=== PATIENT | male | born 1995 | race Caucasian/White ===

== ENCOUNTER 2016-11-30 13:27 | Emergency (ER) | payer MEDICAID ==
[2016-11-30] MEDS ORDERED: SODIUM CHLORIDE 0.9% 1,000 ML IV ONE (14:04)
--- NOTE | 2016-11-30 14:07 | ED Physician Documentation ---
History of Present Illness - Stated complaint Stated Complaint: FATIGUE CHILLS - Chief complaint Chief Complaint: General - History obtained from History obtained from: Patient - History of Present Illness Timing: Other (Previously healthy 21-year-old with 3 days of illness marked by profound fatigue, chills and sweats without measured fevers, sore throat, and sores especially on the tongue and buccal mucosa since last night. He has sharp left-sided upper chest pain with this that is constant for the last few days. There is only a mild associated cough. No sick contacts or recent travel.) Review of Systems Constitutional: reports: Chills, Myalgias, Fatigue, Sweats Nose: denies: Rhinorrhea / runny nose, Congestion Throat: reports: Sore throat Cardiac: reports: Chest pain / pressure Respiratory: reports: Cough. denies: Dyspnea GI: denies: Abdominal Pain PD PAST MEDICAL HISTORY - Past Surgical History Past Surgical History: No - Present Medications Home Medications: Ambulatory Orders Medication Instructions Recorded Confirmed Doxycycline Hyclate 100 mg PO BID #14 tablet 11/30/16 - Allergies Allergies/Adverse Reactions: Allergies Allergy/AdvReac Type Severity Reaction Status Date / Time No Known Drug Allergies Allergy Verified 12/24/15 13:04 - Social History Does the pt smoke?: No Smoking Status: Never smoker Does the pt drink ETOH?: No Does the pt have substance abuse?: No - Immunizations Immunizations are current?: Yes PD ED PE NORMAL - Vitals Vital signs reviewed: Yes (Tachycardic) - General General: Alert and oriented X 3, No acute distress - HEENT HEENT: Other (Quite a few ulcers on the buccal mucosa, the tip of the tongue, and the hard palate. Tonsils look grossly normal. There is moderate anterior cervical adenopathy.) - Cardiac Cardiac: No murmur, Other (Tachycardic, regular, he is mildly tender to the left anterior chest wall.) - Respiratory Respiratory: No respiratory distress, Clear bilaterally - Abdomen Abdomen: Non tender - Derm Derm: No rash - Neuro Neuro: Alert and oriented X 3, Normal speech - Psych Psych: Normal mood, Normal affect Results - Vitals Vitals: Vital Signs - 24 hr 11/30/16 13:33 Temperature 37.5 C Heart Rate 124 H Respiratory 18 Rate Blood Pressure 154/91 H O2 Saturation 98 Oxygen O2 Source Room air - EKG (time done) 1414 Rate: Rate (enter#) (117) Rhythm: Sinus tachycardia [place]: Normal Intervals: Normal [place] QRS: Normal Ischemia: Non specific changes (Flat T's throughout) Compare to prior EKG: Old EKG unavailable Computer interpretation: Agree with computer - Labs Labs: Laboratory Tests 11/30/16 11/30/16 11/30/16 14:30 14:30 14:30 WBC 8.8 RBC 4.93 Hgb 15.1 Hct 42.9 MCV 87.0 MCH 30.5 MCHC 35.1 RDW 12.6 Plt Count 192 MPV 7.5 Neut # 6.9 H Lymph # 1.0 L [place] # 0.8 Eos # 0.0 Baso # 0.0 Absolute Nucleated RBC 0.00 Nucleated RBC % 0.0 Sodium 135 Potassium 3.8 Chloride 101 Carbon Dioxide 22 Anion Gap 12.0 BUN 18 Creatinine 1.0 Estimated GFR (MDRD) 93 Glucose 84 Calcium 8.5 Total Bilirubin 1.0 AST 18 ALT 22 Alkaline Phosphatase 46 Total Protein 8.3 H Albumin 4.2 Globulin 4.1 Albumin/Globulin Ratio 1.0 Lipase 15 L Infectious [place] Assay NEGATIVE Group A Strep Rapid 11/30/16 14:30 WBC RBC Hgb Hct MCV MCH MCHC RDW Plt Count MPV Neut # Lymph # [place] # Eos # Baso # Absolute Nucleated RBC Nucleated RBC % Sodium Potassium Chloride Carbon Dioxide Anion Gap BUN Creatinine Estimated GFR (MDRD) Glucose Calcium Total Bilirubin AST ALT Alkaline Phosphatase Total Protein Albumin Globulin Albumin/Globulin Ratio Lipase Infectious [place] Assay Group A Strep Rapid Negative - Rads (name of study) 2v chest Radiology: EMP read contemporaneously (Basilar opacities and a 7 mm right mid lung nodule needing follow-up.) PD MEDICAL DECISION MAKING - ED course ED course: This young man presents with with seems to be a predominantly viral syndrome associated with mouth sores, systemic symptoms of aches and chills without measured fevers, and dehydration. He is administered IV fluids. Labs are checked and as shown, basically unremarkable, he does have a positive chest x- ray which was discussed with the patient in follow-up advised. Departure - Departure Disposition: 01 Home, Self Care Clinical Impression: Viral syndrome, Pulmonary nodule Pneumonia Qualifiers: Pneumonia type: due to unspecified organism Laterality: bilateral Lung location : lower lobe of lung Qualified Code(s): J18.9 - Pneumonia, unspecified organism Condition: Good Record reviewed to determine appropriate education?: Yes Instructions: Pneumonia Dc, ED Viral Syndrome Follow-Up: [facility] [Provider Group] Prescriptions: Doxycycline Hyclate 100 mg PO BID #14 tablet Comments: Tylenol or ibuprofen as needed for pain. Drink plenty of fluids. Follow-up with your doctor in 2-3 days if not better. Return if worse. Your blood pressure was elevated today on check into the emergency department. This does not mean that you have hypertension, it is a common phenomenon to come to the emergency department and have elevated blood pressure. I recommend that you see your primary care physician within the week to have it rechecked when you are feeling better. As discussed you have a small nodule on the right side of your lung on the chest x-ray that needs to be followed up with your primary care physician, recommend either a nonurgent CT or follow-up chest x-ray per their discretion. Some local physicians are listed on this form. Forms: Activity restrictions
--- NOTE | 2016-11-30 14:52 | XRAY Preliminary Report ---
Exam: XR CHEST 2 VIEW PA/LAT IMPRESSION: 1. Mild left greater than right basilar opacities could reflect atelectasis or possibly mild pneumoni a. No other airspace consolidation. 2. New 7 mm nodular opacity projects over the right midlung. While this may represent a granuloma, it is indeterminate by plain radiograph. Nonemergent chest CT could be obtained for further evaluation. [facility] SITE ID: [id number]
--- NOTE | 2016-11-30 14:55 | XRAY Report ---
EXAM: CHEST RADIOGRAPHY EXAM DATE: 11/30/2016 02:38 PM. CLINICAL HISTORY: Left chest pain. COMPARISON: 11/17/2010. TECHNIQUE: 2 views. FINDINGS: Lungs/Pleura: 7 mm nodular opacity projecting over the right midlung is new compared to 2010. Mild le ft greater than right base opacity could reflect atelectasis or possibly mild pneumonia. No pleural e ffusion or pneumothorax. Mediastinum: Heart and mediastinal contours are unremarkable. Other: None. IMPRESSION: 1. Mild left greater than right basilar opacities could reflect atelectasis or possibly mild pneumoni a. No other airspace consolidation. 2. New 7 mm nodular opacity projects over the right midlung. While this may represent a granuloma, it is indeterminate by plain radiograph. Nonemergent chest CT could be obtained for further evaluation. [facility] Referring Provider Line: [phone] SITE ID: [id number]
[2016-11-30 14:58] LABS: BASOPHILS % (AUTO) 0.2 %; HCT - HEMATOCRIT 42.9 % (42.0-52.0); HGB - HEMOGLOBIN 15.1 g/dL (14.0-18.0); LYMPHOCYTES % (AUTO) 11.1 %; MEAN CORPUSCULAR HEMOGLOBIN 30.5 pg (27.0-31.0); MEAN CORPUSCULAR HGB CONC 35.1 g/dL (32.0-36.0); MEAN PLATELET VOLUME 7.5 fL (7.4-11.4); MONOCYTES # (AUTO) 0.8 10^3/uL (0.0-1.0); MONOCYTES % (AUTO) 9.6 %; NEUTROPHILS # (AUTO) 6.9 10^3/uL (1.5-6.6); NEUTROPHILS % (AUTO) 79.1 %; RED BLOOD COUNT 4.93 10^6/uL (4.70-6.10); RED CELL DISTRIBUTION WIDTH 12.6 % (12.0-15.0); UNCORRECTED WHITE BLOOD COUNT 8.8 x10^3/uL; WHITE BLOOD COUNT 8.8 x10^3/uL (4.8-10.8)
[2016-11-30 15:04] LABS: MONO NEG QC NEGATIVE (Negative); MONO POS QC POSITIVE (Positive)
[2016-11-30 15:06] LABS: CALCIUM 8.5 mg/dL (8.5-10.3); POTASSIUM 3.8 mmol/L (3.5-5.0); TOTAL PROTEIN 8.3 g/dL (6.7-8.2)
[2016-11-30 15:07] LABS: RAPID STREP SCREEN REAGENT QC YELLOW (YELLOW)
[2016-11-30] MEDS ORDERED: DOXYCYCLINE 100 MG TABLET PO STA (15:32)
[2016-11-30] MEDS ORDERED: DOXYCYCLINE 100 MG TABLET PO ONE (15:47)
[2016-11-30 15:52] VITALS: BP 142/86
== END 2016-11-30 15:52 | disposition home or self-care (01) ==
LOC: ED 13:27
DX: B34.9 Viral infection, unspecified (principal); R91.1 Solitary pulmonary nodule; J18.9 Pneumonia, unspecified organism; R03.0 Elevated blood-pressure reading, without diagnosis of hypertension; R00.0 Tachycardia, unspecified; E86.0 Dehydration; K12.1 Other forms of stomatitis; K14.0 Glossitis; R07.9 Chest pain, unspecified
CPT/HCPCS: 36415; 71020; 80053; 83690; 85025; 86308; 87070; 87430; 93005; 96360; 99283; 99284; A9270

== ENCOUNTER 2018-06-23 11:16 | Emergency (ER) | payer MEDICAID, OTHER ==
[2018-06-23] MEDS ORDERED: ONDANSETRON 4 MG/2 ML VIAL IVP STA (11:28)
[2018-06-23] MEDS ORDERED: SODIUM CHLORIDE 0.9% 1,000 ML IV ONE (11:28)
[2018-06-23 11:54] LABS: BASOPHILS % (AUTO) 0.4 %; EOSINOPHILS # (AUTO) 0.1 10^3/uL (0.0-0.7); EOSINOPHILS % (AUTO) 0.6 %; HGB - HEMOGLOBIN 17.5 g/dL (14.0-18.0); LYMPHOCYTES # (AUTO) 1.7 10^3/uL (1.5-3.5); LYMPHOCYTES % (AUTO) 17.6 %; MEAN CORPUSCULAR HEMOGLOBIN 30.2 pg (27.0-31.0); MEAN CORPUSCULAR HGB CONC 34.1 g/dL (32.0-36.0); MEAN CORPUSCULAR VOLUME 88.5 fL (80.0-94.0); MEAN PLATELET VOLUME 7.8 fL (7.4-11.4); MONOCYTES # (AUTO) 0.5 10^3/uL (0.0-1.0); MONOCYTES % (AUTO) 5.5 %; NEUTROPHILS # (AUTO) 7.3 10^3/uL (1.5-6.6); NEUTROPHILS % (AUTO) 75.9 %; PLT - PLATELET COUNT 317 10^3/uL (130-450); RED BLOOD COUNT 5.82 10^6/uL (4.70-6.10); RED CELL DISTRIBUTION WIDTH 12.9 % (12.0-15.0); WHITE BLOOD COUNT 9.6 x10^3/uL (4.8-10.8)
--- NOTE | 2018-06-23 12:18 | ED Physician Documentation ---
PD HPI NVD - Stated complaint Stated Complaint: VOMITING - Chief complaint Chief Complaint: Abd Pain - History obtained from History obtained from: Patient, Family - History of Present Illness Timing - onset: How many days ago (2) Timing - duration: Days (2) Timing - details: Gradual onset Pain level max: 4 Pain level now: 3 Associated symptoms: Abdominal pain (Crampy, diffuse). No: Fever, Chest pain, Hematemesis, Melena Contributing factors: Sick contact Improved by: Vomiting Worsened by: Eating Recently seen: Not recently seen - Additonal information Additional information: Patient states that he had diarrhea 2 days ago, now has had vomiting for the past 2 days. Feeling weak and tired. Review of Systems Constitutional: denies: Fever, Chills Respiratory: denies: Cough GI: denies: Hematemesis, Bloody / black stool : denies: Dysuria, Frequency Skin: denies: Rash PD PAST MEDICAL HISTORY - Past Medical History Past Medical History: Yes Psych: Depression - Past Surgical History Past Surgical History: No - Present Medications Home Medications: Ambulatory Orders Medication Instructions Recorded Confirmed FLUoxetine [PROzac] 10 mg PO DAILY 06/23/18 06/23/18 Ondansetron Odt [Zofran] 4 mg TL Q6H PRN #10 tablet 06/23/18 - Allergies Allergies/Adverse Reactions: Allergies Allergy/AdvReac Type Severity Reaction Status Date / Time No Known Drug Allergies Allergy Verified 06/23/18 11:21 - Social History Does the pt smoke?: No Smoking Status: Never smoker Does the pt drink ETOH?: No Does the pt have substance abuse?: No - Immunizations Immunizations are current?: Yes PD ED PE NORMAL - Vitals Vital signs reviewed: Yes - General General: Alert and oriented X 3, No acute distress - HEENT HEENT: PERRL, Other (Dry lips and tongue) - Neck Neck: Supple, no meningeal sign - Cardiac Cardiac: RRR - Respiratory Respiratory: No respiratory distress, Clear bilaterally - Abdomen Abdomen: Normal bowel sounds, Soft, Non tender, Non distended - Back Back: No CVA TTP - Derm Derm: Warm and dry - Extremities Extremities: No edema - Neuro Neuro: Alert and oriented X 3 - Psych Psych: Normal mood, Normal affect Results - Vitals Vitals: Vital Signs - 24 hr 06/23/18 06/23/18 11:19 13:02 Temperature 36.7 C 37 C Heart Rate 105 H 78 Respiratory 18 16 Rate Blood Pressure 145/87 H 144/86 H O2 Saturation 99 98 Oxygen O2 Source Room air - Labs Labs: Laboratory Tests 06/23/18 06/23/18 11:40 11:40 WBC 9.6 RBC 5.82 Hgb 17.5 Hct 51.5 MCV 88.5 MCH 30.2 MCHC 34.1 RDW 12.9 Plt Count 317 MPV 7.8 Neut # (Auto) 7.3 H Lymph # (Auto) 1.7 [place] # (Auto) 0.5 Eos # (Auto) 0.1 Baso # (Auto) 0.0 Absolute Nucleated RBC 0.01 Nucleated RBC % 0.1 Sodium 140 Potassium 3.6 Chloride 102 Carbon Dioxide 23 Anion Gap 15.0 H BUN 18 Creatinine 1.2 Estimated GFR (MDRD) 74 L Glucose 103 H Calcium 9.2 Total Bilirubin 0.9 AST 18 ALT 28 Alkaline Phosphatase 56 Total Protein 7.5 Albumin 4.3 Globulin 3.2 Albumin/Globulin Ratio 1.3 Lipase 19 L PD MEDICAL DECISION MAKING - ED course Complexity details: reviewed results, re-evaluated patient, considered differential, d/w patient, d/w family ED course: 22-year-old male with what appears to be a viral gastroenteritis. He is well- appearing, nontoxic. Afebrile. Feels better after IV fluids and Zofran. Tolerating p.o. without difficulty. We will continue supportive care and follow-up with his doctor. Patient and family counseled regarding signs and symptoms for which I believe and urgent re-evaluation would be necessary. Patient with good understanding of and agreement to plan and is comfortable going home at this time This document was made in part using voice recognition software. While efforts a re made to proofread this document, sound alike and grammatical errors may occur. Departure - Departure Disposition: 01 Home, Self Care Clinical Impression: Vomiting Qualifiers: Vomiting type: unspecified Vomiting Intractability: non-intractable Nausea presence: with nausea Qualified Code(s): R11.2 - Nausea with vomiting, unspecified Condition: Good Instructions: ED Nausea Vomiting Follow-Up: Provider,Other [Primary Care Provider] - Within 1 week Prescriptions: Ondansetron Odt [Zofran] 4 mg TL Q6H PRN #10 tablet PRN Reason: Nausea / Vomiting Comments: Drink plenty of fluids. Return if you worsen. Follow-up with your doctor for further care. Discharge Date/Time: 06/23/18 13:36
[2018-06-23 12:21] LABS: ALBUMIN 4.3 g/dL (3.2-5.5); ALBUMIN/GLOBULIN RATIO 1.3 (1.0-2.2); BILIRUBIN,TOTAL 0.9 mg/dL (0.2-1.0); CALCIUM 9.2 mg/dL (8.5-10.3); CREATININE 1.2 mg/dL (0.6-1.2); TOTAL PROTEIN 7.5 g/dL (6.7-8.2)
[2018-06-23 13:04] VITALS: BP 144/86
== END 2018-06-23 13:36 | disposition home or self-care (01) ==
LOC: ED 11:16
DX: R11.2 Nausea with vomiting, unspecified (principal); R10.84 Generalized abdominal pain; R53.1 Weakness
CPT/HCPCS: 36415; 80053; 83690; 85025; 96361; 96374; 99283

== ENCOUNTER 2018-07-10 10:16 | Emergency (ER) | payer OTHER ==
[2018-07-10 10:25] VITALS: BP 143/86
[2018-07-10 10:49] LABS: GLUCOSE, URINE (UA) NEGATIVE (NEGATIVE); KETONES,URINE (UA) NEGATIVE (NEGATIVE); LEUKOCYTE ESTERASE, URINE NEGATIVE (NEGATIVE); NITRITE,URINE NEGATIVE (NEGATIVE); OCCULT BLOOD,URINE NEGATIVE (NEGATIVE); PROTEIN,URINE TRACE mg/dL (NEGATIVE); UROBILINOGEN,URINE 0.2 (NORMAL) E.U./dL (NORMAL)
[2018-07-10 10:54] LABS: BASOPHILS % (AUTO) 0.3 %; EOSINOPHILS # (AUTO) 0.1 10^3/uL (0.0-0.7); EOSINOPHILS % (AUTO) 0.7 %; LYMPHOCYTES # (AUTO) 1.4 10^3/uL (1.5-3.5); LYMPHOCYTES % (AUTO) 17.7 %; MEAN CORPUSCULAR HEMOGLOBIN 30.4 pg (27.0-31.0); MEAN CORPUSCULAR HGB CONC 34.6 g/dL (32.0-36.0); MEAN CORPUSCULAR VOLUME 87.8 fL (80.0-94.0); MEAN PLATELET VOLUME 7.3 fL (7.4-11.4); MONOCYTES # (AUTO) 0.4 10^3/uL (0.0-1.0); MONOCYTES % (AUTO) 4.8 %; NEUTROPHILS # (AUTO) 5.9 10^3/uL (1.5-6.6); NEUTROPHILS % (AUTO) 76.5 %; PLT - PLATELET COUNT 281 10^3/uL (130-450); RED BLOOD COUNT 5.28 10^6/uL (4.70-6.10); RED CELL DISTRIBUTION WIDTH 12.9 % (12.0-15.0); WHITE BLOOD COUNT 7.7 x10^3/uL (4.8-10.8)
[2018-07-10 10:55] LABS: BILIRUBIN,URINE NEGATIVE (NEGATIVE); CLARITY,URINE CLEAR (CLEAR); ICTOTEST,URINE NEGATIVE
[2018-07-10] MEDS ORDERED: HALOPERIDOL 5 MG/ML VIAL IM STA (11:01)
[2018-07-10] MEDS ORDERED: FAMOTIDINE 20 MG TABLET PO STA (11:02)
[2018-07-10 11:07] LABS: ALBUMIN 4.6 g/dL (3.2-5.5); ALBUMIN/GLOBULIN RATIO 1.3 (1.0-2.2); BILIRUBIN,TOTAL 0.7 mg/dL (0.2-1.0); CALCIUM 9.3 mg/dL (8.5-10.3); CREATININE 1.1 mg/dL (0.6-1.2); TOTAL PROTEIN 8.2 g/dL (6.7-8.2)
[2018-07-10] MEDS ORDERED: GI COCKTAIL 120 ML BOTTLE PO STA (12:20)
--- NOTE | 2018-07-10 12:23 | ED Physician Documentation ---
PD HPI NVD - Stated complaint Stated Complaint: VOMITING - Chief complaint Chief Complaint: Abd Pain - History obtained from History obtained from: Patient - History of Present Illness Timing - onset: How many weeks ago (2-3) Timing - duration: Weeks Associated symptoms: Abdominal pain, Hematemesis, Loss of appetite. No: Fever, Melena, Hematochezia, Dizzy, Near syncope / syncope Contributing factors: No: Sick contact, Bad food, Travel, Recent antibiotics, Alcohol use, Anticoagulated, Diabetes Improved by: Other (nothing) Worsened by: Eating Similar symptoms before: Diagnosis (seen a few weeks ago and diagnosed with gastroenteritis) Recently seen: Emergency Dept (treated for possible gastroenteritis) - Treatment prior to arrival Treatment prior to arrival: zofran at home - Additonal information Additional information: Denies use of marijuana or other drugs. Denies diarrhea Review of Systems Ten Systems: 10 systems reviewed and negative Constitutional: denies: Fever, Chills Throat: denies: Sore throat Cardiac: denies: Chest pain / pressure Respiratory: reports: Wheezing. denies: Dyspnea, Cough GI: reports: Abdominal Pain, Nausea, Vomiting. denies: Abdominal Swelling, Constipation, Diarrhea, Hematemesis, Bloody / black stool Skin: denies: Rash Neurologic: denies: Generalized weakness Psychiatric: denies: Suicidal PD PAST MEDICAL HISTORY - Past Medical History Past Medical History: Yes Psych: Depression - Past Surgical History Past Surgical History: No - Present Medications Home Medications: Ambulatory Orders Medication Instructions Recorded Confirmed FLUoxetine [PROzac] 10 mg PO DAILY 06/23/18 06/23/18 Ondansetron Odt [Zofran] 4 mg TL Q6H PRN #10 tablet 06/23/18 RX: Omeprazole 20 mg PO DAILY #10 capsule. 07/10/18 - Allergies Allergies/Adverse Reactions: Allergies Allergy/AdvReac Type Severity Reaction Status Date / Time No Known Drug Allergies Allergy Verified 07/10/18 10:25 - Social History Does the pt smoke?: No Smoking Status: Never smoker Does the pt drink ETOH?: No Does the pt have substance abuse?: No - Immunizations Immunizations are current?: Yes PD ED PE NORMAL - Vitals Vital signs reviewed: Yes - General General: Alert and oriented X 3 - HEENT HEENT: Atraumatic, Moist mucous membranes - Neck Neck: Supple, no meningeal sign - Cardiac Cardiac: RRR, No murmur - Respiratory Respiratory: No respiratory distress - Abdomen Abdomen: Soft, Non tender, Non distended - Male Male : Deferred - Rectal Rectal: Deferred - Back Back: No CVA TTP - Derm Derm: Normal color, Warm and dry, No rash - Extremities Extremities: No edema - Neuro Neuro: Alert and oriented X 3 Eye Opening: Spontaneous Motor: Obeys Commands Verbal: Oriented GCS Score: 15 - Psych Psych: Normal mood, Normal affect Results - Vitals Vitals: Vital Signs - 24 hr 07/10/18 10:23 Temperature 36.2 C L Heart Rate 86 Respiratory 18 Rate Blood Pressure 143/86 H O2 Saturation 100 Oxygen O2 Source Room air - Labs Labs: Laboratory Tests 07/10/18 07/10/18 07/10/18 10:42 10:47 10:47 WBC 7.7 RBC 5.28 Hgb 16.0 Hct 46.3 MCV 87.8 MCH 30.4 MCHC 34.6 RDW 12.9 Plt Count 281 MPV 7.3 L Neut # (Auto) 5.9 Lymph # (Auto) 1.4 L [place] # (Auto) 0.4 Eos # (Auto) 0.1 Baso # (Auto) 0.0 Absolute Nucleated RBC 0.00 Nucleated RBC % 0.1 Sodium 139 Potassium 3.7 Chloride 103 Carbon Dioxide 25 Anion Gap 11.0 BUN 15 Creatinine 1.1 Estimated GFR (MDRD) 82 L Glucose 103 H Calcium 9.3 Total Bilirubin 0.7 AST 25 ALT 41 Alkaline Phosphatase 65 Total Protein 8.2 Albumin 4.6 Globulin 3.6 Albumin/Globulin Ratio 1.3 Lipase 23 Urine Color DARK YELLOW Urine Clarity CLEAR Urine pH 6.0 Ur Specific [place] 1.025 Urine Protein TRACE Urine Glucose (UA) NEGATIVE Urine Ketones NEGATIVE Urine Occult Blood NEGATIVE Urine Nitrite NEGATIVE Urine Bilirubin NEGATIVE Urine Urobilinogen 0.2 (NORMAL) Ur Leukocyte Esterase NEGATIVE Ur Microscopic Review NOT INDICATED Urine Culture Comments NOT INDICATED normal except mildly elevated glucose PD MEDICAL DECISION MAKING - ED course Complexity details: reviewed old records, reviewed results, re-evaluated patient, considered differential, d/w patient ED course: Ddx - cholecystitis, choleltithiasis, pancreatitis, gastritis, PUD 22 y/o M with ongoing upper abdominal pain radiating to both flanks for 3 weeks with occasional nausea and vomiting. Pt's abdominal exam here is benign. He has no tenderness or distension, his labs are normal, he tolerated PO and is feeling better after antacids, antiemetics and a GI cocktail. This may be gastritis or PUD . Advised pt to start supportive meds and to f/u with PCP for recheck of symptoms and eval for hpylori. Departure - Departure Disposition: 01 Home, Self Care Clinical Impression: Vomiting, Abdominal pain Condition: Stable Record reviewed to determine appropriate education?: Yes Instructions: ED Abdominal Pain Unkn Cause Follow-Up: Travon Adler PA-C [Primary Care Provider] - Within 1 week Prescriptions: RX: Omeprazole 20 mg PO DAILY #10 capsule.dr Print Language: Czech Comments: You were evaluated in the ED today for abdominal pain nausea and vomiting. Your labs for your liver, kidneys and pancreas were normal. There was no suggestion of an acute infection needing emergent antibiotics. You should follow up with your doctor at you regular appointment next week. You can take omeprazole (prilosec) for your symptoms as this will reduce the acid in your stomach and may help y our pain if it is due to gastritis or a stomach ulcer. Return to the ED if worsening pain or unable to tolerate oral fluids. Discharge Date/Time: 07/10/18 12:40
[2018-07-10] MEDS ORDERED: LIDOCAINE VISCOUS 2% 15 ML UDC MM STA (12:28)
[2018-07-10] MEDS ORDERED: PHENobarb/HYOSCY/ATROPINE/SCOP 5 ML UDC PO STA (12:35)
[2018-07-10] MEDS ORDERED: MAG HYDROX/AL HYDROX/SIMETH 30 ML UDC PO STA (12:35)
== END 2018-07-10 12:40 | disposition home or self-care (01) ==
LOC: ED 10:16
DX: R11.10 Vomiting, unspecified (principal); R10.9 Unspecified abdominal pain
CPT/HCPCS: 36415; 80053; 81003; 83690; 85025; 96372; 99283; A9270; 81001; 87086

== ENCOUNTER 2018-07-31 16:41 | Outpatient (CLI) | payer OTHER ==
--- NOTE | 2018-07-31 22:45 | Ultrasound Report ---
Reason: ABDOMINAL PAIN,NAUSEA AND VOMITING Procedure Date: 07/31/2018 Accession Number: [id number] / [id number] Procedure: US - Abdomen Complete CPT Code: FULL RESULT: EXAM: ABDOMEN ULTRASOUND EXAM DATE: 07/31/2018 05:40 PM. CLINICAL HISTORY: ABDOMINAL PAIN,NAUSEA AND VOMITING. COMPARISON: None. TECHNIQUE: Real-time scanning was performed with static images obtained. FINDINGS: Liver: Diffusely increased echogenicity. 15.3 cm. Main portal vein flow: Hepatopetal. Gallbladder: No stones, wall thickening, or sonographic Horne's sign. Biliary System: Common bile duct measures 3 mm. No intrahepatic ductal dilatation. Pancreas: The visualized portions unremarkable. Distal tail obscured by overlying bowel gas. Kidneys: Right: 12.4 cm longitudinally. No contour-deforming mass, shadowing stones, or hydronephrosis. Left: 13.2 cm longitudinally. No contour-deforming mass, shadowing stones, or hydronephrosis. Spleen: 11.5 cm Imaged portions of the aorta and IVC are unremarkable. IMPRESSION: Diffusely increased liver echogenicity, likely steatosis. [facility]
== END 2018-07-31 16:42 | disposition home or self-care (01) ==
LOC: DI 16:41
PROVIDERS: ATTEND Nurse Practitioner Gerontology
DX: R10.9 Unspecified abdominal pain (principal); R11.2 Nausea with vomiting, unspecified
CPT/HCPCS: 76700

== ENCOUNTER 2018-09-06 | Emergency (ER) | payer OTHER | END 2018-09-06 21:05 | disposition home or self-care (01) | DX: R11.2 Nausea with vomiting, unspecified (principal); R10.13 Epigastric pain; E86.0 Dehydration | CPT/HCPCS: 36415; 80053; 81003; 83690; 85025; 93005; 96365; 96375; 99284; J7040; 81001; 87086 ==

== ENCOUNTER 2018-09-13 07:03 | Day surgery (SDC) | payer OTHER ==
[2018-09-13] MEDS ORDERED: LACTATED RINGERS 1,000 ML IV ONE ×2 (07:44→10:00)
[2018-09-13] MEDS ORDERED: MIDAZOLAM 2 MG/2 ML VIAL IVP ONE (09:17)
[2018-09-13] MEDS ORDERED: fentaNYL 250 MCG/5 ML VIAL IVP ONE (09:17)
[2018-09-13] MEDS ORDERED: LIDO GARGLE 30 ML BOTTLE ONE (09:20)
[2018-09-13 11:21] VITALS: BP 133/78
== END 2018-09-13 07:04 | disposition home or self-care (01) ==
LOC: SDS 07:03
PROVIDERS: ATTEND Surgery
PROC: 0DB68ZX Excision of Stomach, Via Natural or Artificial Opening Endoscopic, Diagnostic (ICD-10-PCS; 2018-09-13)
PROC: 0DB58ZX Excision of Esophagus, Via Natural or Artificial Opening Endoscopic, Diagnostic (ICD-10-PCS; 2018-09-13)
PROC: 0DBE8ZX Excision of Large Intestine, Via Natural or Artificial Opening Endoscopic, Diagnostic (ICD-10-PCS; principal; 2018-09-13 08:30)
PROC: 0DB98ZX Excision of Duodenum, Via Natural or Artificial Opening Endoscopic, Diagnostic (ICD-10-PCS; 2018-09-13 08:30)
DX: R10.9 Unspecified abdominal pain (principal); R11.2 Nausea with vomiting, unspecified; R53.1 Weakness; R63.4 Abnormal weight loss
CPT/HCPCS: 43239; 45380; A9270; J3010; J7120

== ENCOUNTER 2018-09-25 14:54 | Emergency (ER) | payer MEDICAID, OTHER ==
--- NOTE | 2018-09-25 15:28 | ED Physician Documentation ---
History of Present Illness - Stated complaint Stated Complaint: MHE - Chief complaint Chief Complaint: MHE - Additonal information Additional information: This is a 22-year-old male with a history of depression who presents with depression, hallucinations, and suicidal ideation. Patient has had a history of past suicide attempts with an overdose on medication. He states that since August he started having auditory visual hallucinations, he also states his had some olfactory hallucinations as well. He is prescribed fluoxetine and has been taking this as prescribed. States that for the last week he has been feeling increasingly depressed, he has had more voices, voices are telling him to kill himself. He states that he has a plan to overdose on his medications. He is unable to pinpoint any specific trigger for his increasing symptoms, he states that his depression seems to wax and wane irrespective of what he does. He denies any fever, neck stiffness, headache. He does have some chronic abdominal pain which is being worked up, does not have current abdominal pain. The used marijuana several weeks ago, none since. He denies other drug use, denies alcohol use. Review of Systems Constitutional: denies: Fever Nose: denies: Rhinorrhea / runny nose Cardiac: denies: Chest pain / pressure Respiratory: denies: Dyspnea GI: denies: Abdominal Pain Psychiatric: reports: Depressed, Suicidal, Hallucinations PD PAST MEDICAL HISTORY - Past Medical History Past Medical History: No Cardiovascular: None Respiratory: None Neuro: None Endocrine/Autoimmune: None GI: GERD, Other : None HEENT: None Psych: Depression, Anxiety Musculoskeletal: None Derm: Eczema - Past Surgical History Past Surgical History: Yes General: Colonoscopy - Present Medications Home Medications: Ambulatory Orders Medication Instructions Recorded Confirmed FLUoxetine [PROzac] 10 mg PO DAILY 06/23/18 09/13/18 Omeprazole 20 mg PO DAILY #30 capsule. 09/06/18 09/13/18 Promethazine [Phenergan] 25 mg PO Q6H PRN #14 tab 09/06/18 09/13/18 - Allergies Allergies/Adverse Reactions: Allergies Allergy/AdvReac Type Severity Reaction Status Date / Time No Known Drug Allergies Allergy Verified 09/25/18 15:01 - Social History Does the pt smoke?: No Smoking Status: Never smoker Does the pt drink ETOH?: No Does the pt have substance abuse?: No - Immunizations Immunizations are current?: Yes - POLST Patient has POLST: No PD ED PE NORMAL - Vitals Vital signs reviewed: Yes - General General: Alert and oriented X 3, No acute distress - HEENT HEENT: PERRL - Neck Neck: Supple, no meningeal sign - Cardiac Cardiac: RRR, No murmur - Respiratory Respiratory: Clear bilaterally - Abdomen Abdomen: Normal bowel sounds, Soft, Non tender, Non distended - Derm Derm: Warm and dry - Extremities Extremities: No deformity - Neuro Neuro: Alert and oriented X 3, No motor deficit, No sensory deficit, Normal speech - Psych Psych: Other (Depressed mood and affect. Linear, goal-directed thought process/speech. Not obviously responding to internal stimuli.) Results - Vitals Vitals: Oxygen O2 Source Room air - Labs Labs: Laboratory Tests 09/25/18 09/25/18 09/25/18 15:41 15:41 15:41 WBC 8.9 RBC 4.99 Hgb 15.2 Hct 44.1 MCV 88.4 MCH 30.5 MCHC 34.5 RDW 12.5 Plt Count 325 MPV 8.6 Neut # (Auto) 7.3 H Lymph # (Auto) 1.1 L [place] # (Auto) 0.4 Eos # (Auto) 0.1 Baso # (Auto) 0.0 Absolute Nucleated RBC 0.00 Nucleated RBC % 0.0 Sodium 140 Potassium 4.0 Chloride 105 Carbon Dioxide 25 Anion Gap 10.0 BUN 17 Creatinine 0.9 Estimated GFR (MDRD) 104 Glucose 114 H Calcium 9.2 Total Bilirubin 0.4 AST 20 ALT 38 Alkaline Phosphatase 66 Total Protein 7.9 Albumin 4.2 Globulin 3.7 Albumin/Globulin Ratio 1.1 Lipase 22 TSH 0.81 Urine Color Urine Clarity Urine pH Ur Specific [place] Urine Protein Urine Glucose (UA) Urine Ketones Urine Occult Blood Urine Nitrite Urine Bilirubin Urine Urobilinogen Ur Leukocyte Esterase Ur Microscopic Review Urine Culture Comments Salicylates < 6.0 Urine Opiates Screen Ur Oxycodone Screen Urine Methadone Screen Ur Propoxyphene Screen Acetaminophen < 10 L Ur Barbiturates Screen Ur Tricyclics Screen Ur Phencyclidine Scrn Ur Amphetamine Screen U Methamphetamines Scrn U Benzodiazepines Scrn Urine Cocaine Screen U Cannabinoids Screen Ethyl Alcohol 5.2 09/25/18 16:50 WBC RBC Hgb Hct MCV MCH MCHC RDW Plt Count MPV Neut # (Auto) Lymph # (Auto) [place] # (Auto) Eos # (Auto) Baso # (Auto) Absolute Nucleated RBC Nucleated RBC % Sodium Potassium Chloride Carbon Dioxide Anion Gap BUN Creatinine Estimated GFR (MDRD) Glucose Calcium Total Bilirubin AST ALT Alkaline Phosphatase Total Protein Albumin Globulin Albumin/Globulin Ratio Lipase TSH Urine Color YELLOW Urine Clarity CLEAR Urine pH 7.0 Ur Specific [place] 1.015 Urine Protein TRACE Urine Glucose (UA) NEGATIVE Urine Ketones TRACE Urine Occult Blood NEGATIVE Urine Nitrite NEGATIVE Urine Bilirubin NEGATIVE Urine Urobilinogen 0.2 (NORMAL) Ur Leukocyte Esterase NEGATIVE Ur Microscopic Review NOT INDICATED Urine Culture Comments NOT INDICATED Salicylates Urine Opiates Screen NEGATIVE Ur Oxycodone Screen NEGATIVE Urine Methadone Screen NEGATIVE Ur Propoxyphene Screen NEGATIVE Acetaminophen Ur Barbiturates Screen NEGATIVE Ur Tricyclics Screen NEGATIVE Ur Phencyclidine Scrn NEGATIVE Ur Amphetamine Screen NEGATIVE U Methamphetamines Scrn NEGATIVE U Benzodiazepines Scrn POSITIVE H Urine Cocaine Screen NEGATIVE U Cannabinoids Screen NEGATIVE Ethyl Alcohol PD MEDICAL DECISION MAKING - ED course Complexity details: considered differential (SI, psychosis, depression, thyroid disturbance, substance use) ED course: Pt presents with SI. He is organized and without psychosis on my exam. Screening labs notable only for ethyl alcohol of 5. He is clinically sober. Pt was evaluated by DCR and it was determined he needed inpatient hospitalization. He was accepted at [facility] accepting [facility]. Pt's transfer was arranged and he had no acute events prior to transfer. Departure - Departure Disposition: 65 Psych Hosp/Unit DC/Xfer Clinical Impression: Suicidal ideation Depression Qualifiers: Depression Type: unspecified Qualified Code(s): F32.9 - Major depressive disorder, single episode, unspecified Condition: Stable Discharge Date/Time: 09/25/18 22:00
[2018-09-25 15:47] LABS: BASOPHILS % (AUTO) 0.3 %; EOSINOPHILS # (AUTO) 0.1 10^3/uL (0.0-0.7); EOSINOPHILS % (AUTO) 0.9 %; HGB - HEMOGLOBIN 15.2 g/dL (14.0-18.0); LYMPHOCYTES # (AUTO) 1.1 10^3/uL (1.5-3.5); LYMPHOCYTES % (AUTO) 11.9 %; MEAN CORPUSCULAR HEMOGLOBIN 30.5 pg (27.0-31.0); MEAN CORPUSCULAR HGB CONC 34.5 g/dL (32.0-36.0); MEAN CORPUSCULAR VOLUME 88.4 fL (80.0-94.0); MEAN PLATELET VOLUME 8.6 fL (7.4-11.4); MONOCYTES # (AUTO) 0.4 10^3/uL (0.0-1.0); MONOCYTES % (AUTO) 4.3 %; NEUTROPHILS # (AUTO) 7.3 10^3/uL (1.5-6.6); NEUTROPHILS % (AUTO) 82.1 %; PLT - PLATELET COUNT 325 10^3/uL (130-450); RED BLOOD COUNT 4.99 10^6/uL (4.70-6.10); RED CELL DISTRIBUTION WIDTH 12.5 % (12.0-15.0); WHITE BLOOD COUNT 8.9 x10^3/uL (4.8-10.8)
[2018-09-25 16:07] LABS: ACETAMINOPHEN < 10 ug/mL (10-30); ALBUMIN 4.2 g/dL (3.2-5.5); ALBUMIN/GLOBULIN RATIO 1.1 (1.0-2.2); ALKALINE PHOSPHATASE 66 IU/L (42-121); ALT ALANINE AMINOTRANSFERASE 38 IU/L (10-60); AST ASPARTATE AMINOTRANSFERASE 20 IU/L (10-42); BILIRUBIN,TOTAL 0.4 mg/dL (0.2-1.0); BUN - BLOOD UREA NITROGEN 17 mg/dL (6-20); CALCIUM 9.2 mg/dL (8.5-10.3); CARBON DIOXIDE - CO2 25 mmol/L (21-32); CHLORIDE 105 mmol/L (101-111); CREATININE 0.9 mg/dL (0.6-1.2); GFR - MDRD 104 (>89); GLUCOSE 114 mg/dL (70-100); LIPASE 22 U/L (22-51); SALICYLATE < 6.0 mg/dL; SODIUM 140 mmol/L (135-145); TOTAL PROTEIN 7.9 g/dL (6.7-8.2)
[2018-09-25 17:04] LABS: MUDS CUTOFF CONCENTRATIONS CUTOFF CONC BELOW:
[2018-09-25 17:06] LABS: BILIRUBIN,URINE NEGATIVE (NEGATIVE); GLUCOSE, URINE (UA) NEGATIVE (NEGATIVE); KETONES,URINE (UA) TRACE mg/dL (NEGATIVE); LEUKOCYTE ESTERASE, URINE NEGATIVE (NEGATIVE); NITRITE,URINE NEGATIVE (NEGATIVE); OCCULT BLOOD,URINE NEGATIVE (NEGATIVE); PROTEIN,URINE TRACE mg/dL (NEGATIVE); UROBILINOGEN,URINE 0.2 (NORMAL) E.U./dL (NORMAL)
[2018-09-25 17:07] LABS: CLARITY,URINE CLEAR (CLEAR)
[2018-09-25 17:16] LABS: AMPHETAMINE SCREEN,URINE NEGATIVE (NEGATIVE); BENZODIAZEPINES SCREEN, URINE POSITIVE (NEGATIVE); COCAINE SCREEN URINE NEGATIVE (NEGATIVE); METHADONE SCREEN, URINE NEGATIVE (NEGATIVE); METHAMPHETAMINES SCREEN, URINE NEGATIVE (NEGATIVE); OPIATE SCREEN, URINE NEGATIVE (NEGATIVE); OXYCODONE SCREEN, URINE NEGATIVE (NEGATIVE); PROPOXYPHENE SCREEN, URINE NEGATIVE (NEGATIVE); TRICYCLIC ANTIDEPRESSANT,URINE NEGATIVE (NEGATIVE)
[2018-09-25 22:01] VITALS: BP 137/91
== END 2018-09-25 22:00 ==
LOC: ED 14:54
DX: F32.9 Major depressive disorder, single episode, unspecified (principal); R45.851 Suicidal ideations; R44.0 Auditory hallucinations; R44.1 Visual hallucinations; R44.2 Other hallucinations
CPT/HCPCS: 36415; 80053; 80306; 80307; 80320; 80329; 81001; 81003; 83690; 84443; 85025; 87086; 99284; 99285

== ENCOUNTER 2018-10-30 01:38 | Outpatient (CLI) | payer MEDICAID | END 2018-10-30 01:39 | disposition critical access hospital (66) | LOC: EMS 01:38 | PROVIDERS: ATTEND Surgery | DX: R53.83 Other fatigue (principal); R69 Illness, unspecified | CPT/HCPCS: A0425; A0429; A0999 ==

== ENCOUNTER 2018-10-30 01:58 | Emergency (ER) | payer MEDICAID ==
[2018-10-30] MEDS ORDERED: SODIUM CHLORIDE 0.9% 1,000 ML IV ONE (02:10)
[2018-10-30 02:28] LABS: BASOPHILS % (AUTO) 0.3 %; EOSINOPHILS # (AUTO) 0.3 10^3/uL (0.0-0.7); EOSINOPHILS % (AUTO) 2.7 %; HGB - HEMOGLOBIN 13.9 g/dL (14.0-18.0); LYMPHOCYTES # (AUTO) 1.2 10^3/uL (1.5-3.5); MEAN CORPUSCULAR HEMOGLOBIN 30.8 pg (27.0-31.0); MEAN CORPUSCULAR HGB CONC 34.3 g/dL (32.0-36.0); MEAN CORPUSCULAR VOLUME 89.6 fL (80.0-94.0); MEAN PLATELET VOLUME 9.4 fL (7.4-11.4); MONOCYTES # (AUTO) 0.6 10^3/uL (0.0-1.0); NEUTROPHILS # (AUTO) 8.8 10^3/uL (1.5-6.6); NEUTROPHILS % (AUTO) 80.5 %; PLT - PLATELET COUNT 261 10^3/uL (130-450); RED BLOOD COUNT 4.52 10^6/uL (4.70-6.10); RED CELL DISTRIBUTION WIDTH 12.8 % (12.0-15.0); WHITE BLOOD COUNT 10.9 x10^3/uL (4.8-10.8)
[2018-10-30 02:39] LABS: ALBUMIN 3.6 g/dL (3.2-5.5); ALBUMIN/GLOBULIN RATIO 1.1 (1.0-2.2); BILIRUBIN,TOTAL 0.6 mg/dL (0.2-1.0); CALCIUM 9.1 mg/dL (8.5-10.3); CREATININE 0.9 mg/dL (0.6-1.2); TOTAL PROTEIN 6.9 g/dL (6.7-8.2)
--- NOTE | 2018-10-30 03:29 | ED Physician Documentation ---
PD HPI ALTERED MENTAL STATUS - Stated complaint Stated Complaint: LETHARGIC - Chief complaint Chief Complaint: Neuro - History obtained from History obtained from: Patient, EMS - History of Present Illness Timing - onset: Yesterday Timing - details: Gradual onset, Waxing and waning Associated symptoms: Headache, Cough, General weakness. No: Fever Basline status: Alert and oriented X 3, Ambulatory, Independent Similar symptoms before: Has not had sx before Recently seen: Emergency Dept (evaluated in this ED last month, transferred to [place]) Review of Systems Constitutional: reports: Myalgias, Fatigue. denies: Fever Nose: reports: Rhinorrhea / runny nose, Congestion, Sinus pressure / pain Throat: denies: Sore throat Cardiac: reports: Reviewed and negative Respiratory: reports: Cough. denies: Dyspnea GI: reports: Reviewed and negative : denies: Dysuria, Frequency PD PAST MEDICAL HISTORY - Past Medical History Past Medical History: Yes Cardiovascular: None Respiratory: Asthma Neuro: None Endocrine/Autoimmune: None GI: GERD, Other : None HEENT: None Psych: Depression, Anxiety Musculoskeletal: None Derm: Eczema - Past Surgical History Past Surgical History: Yes General: Colonoscopy - Present Medications Home Medications: Ambulatory Orders Medication Instructions Recorded Confirmed FLUoxetine [PROzac] 40 mg PO DAILY 06/23/18 09/13/18 Omeprazole 20 mg PO DAILY #30 capsule. 09/06/18 09/13/18 Amox/Clav 875/125 [Augmentin] 1 each PO Q12H #14 tablet 10/30/18 [place] Carbonate 300 mg PO DAILY 10/30/18 10/30/18 - Allergies Allergies/Adverse Reactions: Allergies Allergy/AdvReac Type Severity Reaction Status Date / Time No Known Drug Allergies Allergy Verified 09/25/18 15:01 - Social History Does the pt smoke?: No Smoking Status: Never smoker Does the pt drink ETOH?: No Does the pt have substance abuse?: No - Immunizations Immunizations are current?: Yes - POLST Patient has POLST: No PD ED PE NORMAL - Vitals Vital signs reviewed: Yes - General General: Alert and oriented X 3, No acute distress, Well developed/nourished - HEENT HEENT: PERRL, EOMI, Moist mucous membranes, Pharynx benign - Cardiac Cardiac: RRR, No murmur - Respiratory Respiratory: No respiratory distress, Clear bilaterally - Abdomen Abdomen: Soft, Non tender - Back Back: No CVA TTP - Derm Derm: Normal color, Warm and dry, No rash - Neuro Neuro: Alert and oriented X 3, travel counselor 2-12 intact, No motor deficit, No sensory deficit, Normal speech Results - Vitals Vitals: Oxygen O2 Source Room air - Labs Labs: Laboratory Tests 10/30/18 10/30/18 10/30/18 02:20 02:20 02:20 WBC 10.9 H RBC 4.52 L Hgb 13.9 L Hct 40.5 L MCV 89.6 MCH 30.8 MCHC 34.3 RDW 12.8 Plt Count 261 MPV 9.4 Neut # (Auto) 8.8 H Lymph # (Auto) 1.2 L [place] # (Auto) 0.6 Eos # (Auto) 0.3 Baso # (Auto) 0.0 Absolute Nucleated RBC 0.00 Nucleated RBC % 0.0 Sodium 143 Potassium 3.9 Chloride 108 Carbon Dioxide 27 Anion Gap 8.0 BUN 23 H Creatinine 0.9 Estimated GFR (MDRD) 104 Glucose 138 H Calcium 9.1 Total Bilirubin 0.6 AST 32 ALT 91 H Alkaline Phosphatase 54 Total Creatine Kinase 203 CK-MB (CK-2) Total Protein 6.9 Albumin 3.6 Globulin 3.3 Albumin/Globulin Ratio 1.1 Lipase 21 L Urine Color Urine Clarity Urine pH Ur Specific [place] Urine Protein Urine Glucose (UA) Urine Ketones Urine Occult Blood Urine Nitrite Urine Bilirubin Urine Urobilinogen Ur Leukocyte Esterase Ur Microscopic Review Urine Culture Comments Last Dose Date Last Dose Time Urine Opiates Screen Ur Oxycodone Screen Urine Methadone Screen Ur Propoxyphene Screen Ur Barbiturates Screen Ur Tricyclics Screen Ur Phencyclidine Scrn Ur Amphetamine Screen U Methamphetamines Scrn U Benzodiazepines Scrn [place] Urine Cocaine Screen U Cannabinoids Screen Ethyl Alcohol 10.7 10/30/18 10/30/18 10/30/18 02:20 02:55 03:23 WBC RBC Hgb Hct MCV MCH MCHC RDW Plt Count MPV Neut # (Auto) Lymph # (Auto) [place] # (Auto) Eos # (Auto) Baso # (Auto) Absolute Nucleated RBC Nucleated RBC % Sodium Potassium Chloride Carbon Dioxide Anion Gap BUN Creatinine Estimated GFR (MDRD) Glucose Calcium Total Bilirubin AST ALT Alkaline Phosphatase Total Creatine Kinase CK-MB (CK-2) 2.3 Total Protein Albumin Globulin Albumin/Globulin Ratio Lipase Urine Color YELLOW Urine Clarity CLEAR Urine pH 6.0 Ur Specific [place] >=1.030 H Urine Protein NEGATIVE Urine Glucose (UA) NEGATIVE Urine Ketones NEGATIVE Urine Occult Blood NEGATIVE Urine Nitrite NEGATIVE Urine Bilirubin NEGATIVE Urine Urobilinogen 0.2 (NORMAL) Ur Leukocyte Esterase NEGATIVE Ur Microscopic Review NOT INDICATED Urine Culture Comments NOT INDICATED Last Dose Date 10/28/18 Last Dose Time 0300 Urine Opiates Screen NEGATIVE Ur Oxycodone Screen NEGATIVE Urine Methadone Screen NEGATIVE Ur Propoxyphene Screen NEGATIVE Ur Barbiturates Screen NEGATIVE Ur Tricyclics Screen NEGATIVE Ur Phencyclidine Scrn NEGATIVE Ur Amphetamine Screen NEGATIVE U Methamphetamines Scrn NEGATIVE U Benzodiazepines Scrn NEGATIVE [place] < 0.05 Urine Cocaine Screen NEGATIVE U Cannabinoids Screen NEGATIVE Ethyl Alcohol - Rads (name of study) chest xray Radiology: Prelim report reviewed, See rad report CT head Radiology: Prelim report reviewed, See rad report PD MEDICAL DECISION MAKING - ED course Complexity details: reviewed results, re-evaluated patient, considered differential, d/w patient Departure - Departure Disposition: 01 Home, Self Care Clinical Impression: Sinusitis Condition: Good Instructions: ED Sinusitis Abx Tx Follow-Up: Monika Tovar ARNP [Primary Care Provider] - Within 3 Days Prescriptions: Amox/Clav 875/125 [Augmentin] 1 each PO Q12H #14 tablet Discharge Date/Time: 10/30/18 07:26
[2018-10-30 03:30] LABS: MUDS CUTOFF CONCENTRATIONS CUTOFF CONC BELOW:
[2018-10-30 03:33] LABS: BILIRUBIN,URINE NEGATIVE (NEGATIVE); GLUCOSE, URINE (UA) NEGATIVE (NEGATIVE); KETONES,URINE (UA) NEGATIVE (NEGATIVE); LEUKOCYTE ESTERASE, URINE NEGATIVE (NEGATIVE); NITRITE,URINE NEGATIVE (NEGATIVE); OCCULT BLOOD,URINE NEGATIVE (NEGATIVE); PROTEIN,URINE NEGATIVE (NEGATIVE); UROBILINOGEN,URINE 0.2 (NORMAL) E.U./dL (NORMAL)
[2018-10-30 03:34] LABS: CLARITY,URINE CLEAR (CLEAR)
[2018-10-30 03:36] LABS: LITHIUM < 0.05 mmol/L
[2018-10-30 03:45] LABS: AMPHETAMINE SCREEN,URINE NEGATIVE (NEGATIVE); BENZODIAZEPINES SCREEN, URINE NEGATIVE (NEGATIVE); COCAINE SCREEN URINE NEGATIVE (NEGATIVE); METHADONE SCREEN, URINE NEGATIVE (NEGATIVE); METHAMPHETAMINES SCREEN, URINE NEGATIVE (NEGATIVE); OPIATE SCREEN, URINE NEGATIVE (NEGATIVE); OXYCODONE SCREEN, URINE NEGATIVE (NEGATIVE); PROPOXYPHENE SCREEN, URINE NEGATIVE (NEGATIVE); TRICYCLIC ANTIDEPRESSANT,URINE NEGATIVE (NEGATIVE)
[2018-10-30] MEDS ORDERED: SODIUM CHLORIDE 0.9% 1,000 ML IV STA (03:46)
--- NOTE | 2018-10-30 04:25 | CT Report ---
Reason: LATESHA JACKSON Procedure Date: 10/30/2018 Accession Number: [id number] / [id number] Procedure: CT - HEAD WO CPT Code: FULL RESULT: EXAM: CT HEAD EXAM DATE: 10/30/2018 04:16 AM. CLINICAL HISTORY: LATESHA JACKSON. COMPARISON: None. TECHNIQUE: Multiaxial CT images were obtained from the foramen magnum to the vertex. Reformats: Sagittal and coronal. IV contrast: None. In accordance with CT protocol optimization, one or more of the following dose reduction techniques were utilized for this exam: automated exposure control, adjustment of mA and/or KV based on patient size, or use of iterative reconstructive technique. FINDINGS: Parenchyma: No intraparenchymal hemorrhage. No evidence of mass, midline shift, or CT findings of infarction. Wilson-white differentiation is distinct. Extraaxial Spaces: Normal for age. No subdural or epidural collections identified. Ventricles: Normal in size and position. Sinuses and Orbits: There is mild chronic mucosal thickening in the maxillary antra and ethmoid ourselves and there are fluid levels in both maxillary antra. Sphenoid sinuses and the frontal sinuses are clear. Bones: No evidence of fracture or calvarial defect. Other: None. IMPRESSION: 1. Negative CT scan of the brain. 2. Findings compatible with acute sinusitis. RADIA
--- NOTE | 2018-10-30 04:25 | XRAY Report ---
Reason: cough, dyspnea Procedure Date: 10/30/2018 Accession Number: [id number] / [id number] Procedure: XR - Chest 2 View X-Ray CPT Code: 51867 FULL RESULT: EXAM: CHEST RADIOGRAPHY EXAM DATE: 10/30/2018 04:16 AM. CLINICAL HISTORY: Cough, dyspnea. COMPARISON: CHEST 2 VIEW PA/LAT 11/30/2016 2:20 PM. TECHNIQUE: 2 views. FINDINGS: Lungs/Pleura: No focal opacities evident. No pleural effusion. No pneumothorax. Normal volumes. Mediastinum: Heart and mediastinal contours are unremarkable. Other: None. IMPRESSION: Negative 2-view chest radiography. RADIA
[2018-10-30] MEDS ORDERED: AMOX/CLAV 875 MG/125 MG TABLET PO STA (06:30)
[2018-10-30] MEDS ORDERED: KETOROLAC 30 MG/ML VIAL IVP STA (06:30)
[2018-10-30 07:26] VITALS: BP 136/80
== END 2018-10-30 07:26 | disposition home or self-care (01) ==
LOC: EDUNIT# → ED 01:58
DX: J01.90 Acute sinusitis, unspecified (principal)
CPT/HCPCS: 36415; 70450; 71046; 80053; 80178; 80306; 80320; 81003; 82550; 82553; 83690; 85025; 96361; 96374; 99283; 99284; A9270; 81001; 87086

== ENCOUNTER 2018-12-11 22:18 | Emergency (ER) | payer OTHER, MEDICAID ==
[2018-12-11 22:56] LABS: BASOPHILS % (AUTO) 0.3 %; EOSINOPHILS # (AUTO) 0.1 10^3/uL (0.0-0.7); EOSINOPHILS % (AUTO) 0.9 %; HGB - HEMOGLOBIN 15.6 g/dL (14.0-18.0); LYMPHOCYTES # (AUTO) 1.5 10^3/uL (1.5-3.5); LYMPHOCYTES % (AUTO) 15.8 %; MEAN CORPUSCULAR HEMOGLOBIN 29.2 pg (27.0-31.0); MEAN CORPUSCULAR HGB CONC 33.3 g/dL (32.0-36.0); MEAN CORPUSCULAR VOLUME 87.7 fL (80.0-94.0); MEAN PLATELET VOLUME 9.2 fL (7.4-11.4); MONOCYTES # (AUTO) 0.6 10^3/uL (0.0-1.0); MONOCYTES % (AUTO) 6.4 %; NEUTROPHILS % (AUTO) 76.2 %; PLT - PLATELET COUNT 295 10^3/uL (130-450); RED BLOOD COUNT 5.35 10^6/uL (4.70-6.10); RED CELL DISTRIBUTION WIDTH 12.7 % (12.0-15.0); WHITE BLOOD COUNT 9.2 x10^3/uL (4.8-10.8)
[2018-12-11 23:07] LABS: ALBUMIN 4.3 g/dL (3.2-5.5); ALBUMIN/GLOBULIN RATIO 1.2 (1.0-2.2); BILIRUBIN,TOTAL 0.4 mg/dL (0.2-1.0); CALCIUM 9.2 mg/dL (8.5-10.3); TOTAL PROTEIN 7.8 g/dL (6.7-8.2)
--- NOTE | 2018-12-11 23:14 | XRAY Report ---
Reason: chest pain for a few hours, dizziness Procedure Date: 12/11/2018 Accession Number: [id number] / [id number] Procedure: XR - Chest 1 View X-Ray CPT Code: 16904 Final Report FULL RESULT: EXAM: CHEST RADIOGRAPHY EXAM DATE: 12/11/2018 10:39 PM. CLINICAL HISTORY: Chest pain for a few hours, dizziness. COMPARISON: CHEST 2 VIEW 10/30/2018 3:55 AM. CHEST 2 VIEW PA/LAT 11/30/2016 2:20 PM. 11/17/2010 11:48 AM. TECHNIQUE: 1 view. FINDINGS: Lungs/Pleura: No focal opacities evident. No pleural effusion. No pneumothorax. Mediastinum: Within exam limitations, the cardiomediastinal contour is normal. Other: None. IMPRESSION: Stable normal appearance of the chest.
--- NOTE | 2018-12-11 23:55 | ED Physician Documentation ---
PD HPI NVD - Stated complaint Stated Complaint: CHEST PAIN, VOMITING - Chief complaint Chief Complaint: Cardiac - History obtained from History obtained from: Patient - History of Present Illness Timing - onset: How many days ago (5) Timing - details: Gradual onset, Waxing and waning Pain level now: 3 Associated symptoms: Abdominal pain, Chest pain, Dizzy. No: Fever, Hematemesis Improved by: Other (nothing) Worsened by: Eating Similar symptoms before: No diagnosis - Additonal information Additional information: 6th [facility] ED visit since June, several of which were for similar symptoms (also had recent upper/lower endoscopy that was unremarkable). He presents for nausea, vomiting x 5 days. He developed epigastric and midline chest discomfort tonight Review of Systems Constitutional: denies: Fever, Chills, Sweats Cardiac: reports: Chest pain / pressure. denies: Palpitations, Pedal edema Respiratory: reports: Reviewed and negative GI: reports: Abdominal Pain, Nausea, Vomiting. denies: Constipation, Diarrhea, Hematemesis, Bloody / black stool PD PAST MEDICAL HISTORY - Past Medical History Past Medical History: Yes Cardiovascular: None Respiratory: Asthma Neuro: None Endocrine/Autoimmune: None GI: GERD, Other : None HEENT: None Psych: Depression, Anxiety Musculoskeletal: None Derm: Eczema - Past Surgical History Past Surgical History: Yes General: Colonoscopy - Present Medications Home Medications: Ambulatory Orders Medication Instructions Recorded Confirmed FLUoxetine [PROzac] 40 mg PO DAILY 06/23/18 09/13/18 Omeprazole 20 mg PO DAILY #30 capsule. 09/06/18 09/13/18 Promethazine [Phenergan] 25 mg PO Q6H PRN #10 tab 12/12/18 - Allergies Allergies/Adverse Reactions: Allergies Allergy/AdvReac Type Severity Reaction Status Date / Time No Known Drug Allergies Allergy Verified 12/11/18 22:25 - Social History Does the pt smoke?: No Smoking Status: Never smoker Does the pt drink ETOH?: Yes Does the pt have substance abuse?: Yes Substance Use and Type: Marijuana - Immunizations Immunizations are current?: Yes - POLST Patient has POLST: No PD ED PE NORMAL - Vitals Vital signs reviewed: Yes - General General: Alert and oriented X 3, No acute distress, Well developed/nourished - HEENT HEENT: Moist mucous membranes - Neck Neck: Supple, no meningeal sign - Cardiac Cardiac: RRR, No murmur, No gallop, No rub - Respiratory Respiratory: No respiratory distress, Clear bilaterally - Abdomen Abdomen: Soft, Non tender - Derm Derm: Normal color, Warm and dry - Extremities Extremities: No edema Results - Vitals Vitals: Oxygen O2 Source Room air - Labs Labs: Laboratory Tests 12/11/18 12/11/18 12/11/18 00:07 22:50 22:50 WBC 9.2 RBC 5.35 Hgb 15.6 Hct 46.9 MCV 87.7 MCH 29.2 MCHC 33.3 RDW 12.7 Plt Count 295 MPV 9.2 Neut # (Auto) 7.0 H Lymph # (Auto) 1.5 [place] # (Auto) 0.6 Eos # (Auto) 0.1 Baso # (Auto) 0.0 Absolute Nucleated RBC 0.00 Nucleated RBC % 0.0 Sodium 141 Potassium 3.6 Chloride 103 Carbon Dioxide 29 Anion Gap 9.0 BUN 17 Creatinine 1.0 Estimated GFR (MDRD) 91 Glucose 106 H Calcium 9.2 Total Bilirubin 0.4 AST 31 ALT 60 Alkaline Phosphatase 69 Total Protein 7.8 Albumin 4.3 Globulin 3.5 Albumin/Globulin Ratio 1.2 Lipase 26 Urine Color YELLOW Urine Clarity CLEAR Urine pH 6.0 Ur Specific [place] 1.025 Urine Protein NEGATIVE Urine Glucose (UA) NEGATIVE Urine Ketones TRACE Urine Occult Blood NEGATIVE Urine Nitrite NEGATIVE Urine Bilirubin NEGATIVE Urine Urobilinogen 0.2 (NORMAL) Ur Leukocyte Esterase NEGATIVE Ur Microscopic Review NOT INDICATED Urine Culture Comments NOT INDICATED PD MEDICAL DECISION MAKING - ED course Complexity details: reviewed old records, reviewed results, re-evaluated patient, considered differential, d/w patient ED course: reassuring blood tests and tolerated PO phenergan. results discussed and he is comfortable with d/c home. Previous visits this year for similar presentation without specific diagnosis. Instructed to return if worse and follow up with PMD Departure - Departure Disposition: Home, Self Care Clinical Impression: Vomiting Qualifiers: Vomiting type: unspecified Vomiting Intractability: unspecified Nausea presence: with nausea Qualified Code(s): R11.2 - Nausea with vomiting, unspecified Condition: Good Instructions: ED Nausea Vomiting Follow-Up: Monika Tovar INSURANCE VERIFICATION SPECIALIST [Primary Care Provider] - Prescriptions: Promethazine [Phenergan] 25 mg PO Q6H PRN #10 tab PRN Reason: Nausea / Vomiting Discharge Date/Time: 12/12/18 00:32
[2018-12-12] MEDS ORDERED: PROMETHAZINE 25 MG TABLET PO STA (00:09)
[2018-12-12 00:10] LABS: BILIRUBIN,URINE NEGATIVE (NEGATIVE); GLUCOSE, URINE (UA) NEGATIVE (NEGATIVE); KETONES,URINE (UA) TRACE mg/dL (NEGATIVE); LEUKOCYTE ESTERASE, URINE NEGATIVE (NEGATIVE); NITRITE,URINE NEGATIVE (NEGATIVE); OCCULT BLOOD,URINE NEGATIVE (NEGATIVE); PROTEIN,URINE NEGATIVE (NEGATIVE); UROBILINOGEN,URINE 0.2 (NORMAL) E.U./dL (NORMAL)
[2018-12-12 00:11] LABS: CLARITY,URINE CLEAR (CLEAR)
[2018-12-12 00:30] VITALS: BP 135/92
== END 2018-12-12 00:32 | disposition home or self-care (01) ==
LOC: ED 22:18
DX: R11.2 Nausea with vomiting, unspecified (principal); R94.31 Abnormal electrocardiogram [ECG] [EKG]; K21.9 Gastro-esophageal reflux disease without esophagitis
CPT/HCPCS: 36415; 71045; 80053; 81003; 83690; 85025; 93005; 99284; Q0169; 81001; 87086

== ENCOUNTER 2019-03-01 10:06 | Emergency (ER) | payer MEDICAID, OTHER ==
[2019-03-01 10:18] VITALS: BP 140/93
--- NOTE | 2019-03-01 11:29 | ED Physician Documentation ---
PD HPI URI - Stated complaint Stated Complaint: NAUSEA/SINUS PX - Chief complaint Chief Complaint: General - History obtained from History obtained from: Patient - History of Present Illness Timing - onset: How many weeks ago (2 weeks of initially URI symptoms, which seemed to improve some and then with few days of maxillary sinus pressure and tenderness. Also having left corner of upper lip with tender small vesicles that he has not had previously.) Timing duration: Days Timing details: Gradual onset, Still present Associated symptoms: Chills, Nasal congestion, Sinus pain. No: Fever, Dry cough, Productive cough, NVD Contributing factors: No: Sick contact Similar symptoms before: Has not had sx before Review of Systems Constitutional: reports: Myalgias. denies: Fever, Chills Ears: denies: Ear pain Nose: reports: Rhinorrhea / runny nose, Sinus pressure / pain Throat: reports: Oral lesions / sores (for few days). denies: Sore throat Respiratory: denies: Cough GI: denies: Nausea, Vomiting, Diarrhea Neurologic: denies: Focal weakness, Numbness PD PAST MEDICAL HISTORY - Past Medical History Cardiovascular: None Respiratory: Asthma Neuro: None Endocrine/Autoimmune: None GI: GERD, Other : None HEENT: None Psych: Depression, Anxiety Musculoskeletal: None Derm: Eczema - Past Surgical History Past Surgical History: Yes General: Colonoscopy - Present Medications Home Medications: Ambulatory Orders Medication Instructions Recorded Confirmed FLUoxetine [PROzac] 40 mg PO DAILY 06/23/18 09/13/18 Omeprazole 20 mg PO DAILY #30 capsule. 09/06/18 09/13/18 Promethazine [Phenergan] 25 mg PO Q6H PRN #10 tab 12/12/18 Doxycycline Monohydrate 100 mg PO BID #14 tablet 03/01/19 Hydrocodone/Acetaminophen [[place] 1 each PO Q6H PRN #15 tablet 03/01/19 5-325 Tablet] Valacyclovir HCl [Valacyclovir] 1,000 mg PO TID #15 tablet 03/01/19 dexAMETHasone [Decadron] 4 mg PO DAILY #5 tablet 03/01/19 - Allergies Allergies/Adverse Reactions: Allergies Allergy/AdvReac Type Severity Reaction Status Date / Time No Known Drug Allergies Allergy Verified 03/01/19 10:14 - Social History Does the pt smoke?: No Smoking Status: Never smoker Does the pt drink ETOH?: Yes Does the pt have substance abuse?: Yes - Immunizations Immunizations are current?: Yes - POLST Patient has POLST: No PD ED PE NORMAL - Vitals Vital signs reviewed: Yes - General General: Alert and oriented X 3, No acute distress, Well developed/nourished - HEENT HEENT: Ears normal, Moist mucous membranes, Pharynx benign, Other (left upper lip laterally with small patch of vesicles. Not draining. ) - Neck Neck: Supple, no meningeal sign, No adenopathy - Cardiac Cardiac: RRR, No murmur - Respiratory Respiratory: Clear bilaterally - Derm Derm: Normal color, Warm and dry Results - Vitals Vitals: Vital Signs - 24 hr 03/01/19 10:14 Temperature 36.7 C Heart Rate 92 Respiratory 17 Rate Blood Pressure 140/93 H O2 Saturation 99 Oxygen O2 Source Room air PD MEDICAL DECISION MAKING - ED course Complexity details: considered differential (has recent URI and now sinus symptoms. Consider bacterial. Also with new oral herpetic lesion left labial corner. No history of same. Has newer girlfriend without known herpes. ), d/w patient Departure - Departure Disposition: Home, Self Care Clinical Impression: Oral herpes Acute sinusitis Qualifiers: Sinusitis location: unspecified location Recurrence: non-recurrent Qualified Code(s): J01.90 - Acute sinusitis, unspecified Condition: Stable Record reviewed to determine appropriate education?: Yes Instructions: ED Herpes Simplex Virus Type 1, ED Sinusitis Abx Tx Follow-Up: Monika Tovar ARNP [Primary Care Provider] - Prescriptions: dexAMETHasone [Decadron] 4 mg PO DAILY #5 tablet Doxycycline Monohydrate 100 mg PO BID #14 tablet Hydrocodone/Acetaminophen [[place] 5-325 Tablet] 1 each PO Q6H PRN #15 tablet PRN Reason: Pain Valacyclovir HCl [Valacyclovir] 1,000 mg PO TID #15 tablet Comments: It sounds like a sinus infection. This may be viral or bacterial but the symptoms sound more likely bacterial. We can treat this with anti-inflammatory as well as antibiotic and refer to the doxycycline and Decadron prescriptions. The sore on the lip looks herpetic and will often associated with times of illness (cold sore). We can treat this with an antiviral to try to decrease the symptoms of it. Apply a topical numbing medicine such as lidocaine. These are available [id number]. Add Tylenol or ibuprofen as needed for pains. Recheck if not proving over the next several days. Add hydrocodone as needed for pains. I did do a culture of it and that will result in a couple of days to verify if it is herpetic. Avoid oral or genital contact with your mouth to prevent spreading it to other people until the sores are gone. Discharge Date/Time: 03/01/19 12:56
[2019-03-01] MEDS ORDERED: DOXYCYCLINE 100 MG TABLET PO STA (11:56)
[2019-03-01] MEDS ORDERED: ACETAMINOPHEN 325 MG TABLET PO STA (11:56)
[2019-03-01] MEDS ORDERED: ONDANSETRON ODT 4 MG TABLET TL STA (11:56)
[2019-03-03 19:48] LABS: SOURCE LIP
== END 2019-03-01 12:56 | disposition home or self-care (01) ==
LOC: ED 10:06
DX: J01.90 Acute sinusitis, unspecified (principal); B00.1 Herpesviral vesicular dermatitis
CPT/HCPCS: 87529; 99284; A9270; Q0162

== ENCOUNTER 2019-12-17 12:57 | Emergency (ER) | payer MEDICAID, OTHER ==
[2019-12-17 13:06] VITALS: BP 130/78
[2019-12-17 13:48] LABS: RAPID STREP SCREEN POSITIVE (Negative)
[2019-12-17] MEDS ORDERED: DEXAMETHASONE 10 MG/ML VIAL PO STA (14:23)
[2019-12-17] MEDS ORDERED: PENICILLIN VK 250 MG TABLET PO STA (14:23)
[2019-12-17] MEDS ORDERED: CHERRY SYRUP 10 ML UDC PO ONE (14:23)
--- NOTE | 2019-12-17 14:27 | ED Physician Documentation ---
History of Present Illness - Stated complaint Stated Complaint: THROAT PX - Chief complaint Chief Complaint: Heent - History obtained from History obtained from: Patient - History of Present Illness Timing: Today Pain level max: 6 Pain level now: 6 - Additonal information Additional information: 24-year-old male presents to the emergency department stating that he has had a sore throat that started approximately 4 AM. Worse with swallowing. Nothing makes it better. No fevers. No cough. No chills. No vomiting. No rash. No abdominal pain Review of Systems Constitutional: denies: Fever, Chills Nose: denies: Rhinorrhea / runny nose, Congestion Respiratory: denies: Cough GI: denies: Vomiting Skin: denies: Rash PD PAST MEDICAL HISTORY - Past Medical History Cardiovascular: None Respiratory: Asthma Neuro: None Endocrine/Autoimmune: None GI: GERD, Other : None HEENT: None Psych: Depression, Anxiety Musculoskeletal: None Derm: Eczema - Past Surgical History Past Surgical History: Yes General: Colonoscopy - Present Medications Home Medications: Ambulatory Orders Medication Instructions Recorded Confirmed FLUoxetine [PROzac] 40 mg PO DAILY 06/23/18 09/13/18 Omeprazole 20 mg PO DAILY #30 capsule. 09/06/18 09/13/18 Promethazine [Phenergan] 25 mg PO Q6H PRN #10 tab 12/12/18 Doxycycline Monohydrate 100 mg PO BID #14 tablet 03/01/19 Hydrocodone/Acetaminophen [[place] 1 each PO Q6H PRN #15 tablet 03/01/19 5-325 Tablet] Valacyclovir HCl [Valacyclovir] 1,000 mg PO TID #15 tablet 03/01/19 dexAMETHasone [Decadron] 4 mg PO DAILY #5 tablet 03/01/19 Ibuprofen [Motrin] 800 mg PO Q8H PRN #30 tablet 12/17/19 Penicillin V Potassium 500 mg PO Q6HR #40 tablet 12/17/19 - Allergies Allergies/Adverse Reactions: Allergies Allergy/AdvReac Type Severity Reaction Status Date / Time No Known Drug Allergies Allergy Verified 03/01/19 10:14 - Social History Does the pt smoke?: No Smoking Status: Never smoker Does the pt drink ETOH?: Yes Does the pt have substance abuse?: Yes - Immunizations Immunizations are current?: Yes - POLST Patient has POLST: No PD ED PE NORMAL - Vitals Vital signs reviewed: Yes - General General: Alert and oriented X 3, No acute distress, Well developed/nourished - HEENT HEENT: PERRL, Moist mucous membranes, Other (Posterior oropharynx is erythematous with tonsillar exudates. Normal phonation. No trismus. Uvula mid line.) - Neck Neck: Supple, no meningeal sign, Other (Shotty anterior lymphadenopathy) - Cardiac Cardiac: RRR, Strong equal pulses - Respiratory Respiratory: No respiratory distress, Clear bilaterally - Abdomen Abdomen: Soft, Non tender, Non distended - Derm Derm: Warm and dry, No rash - Neuro Neuro: Alert and oriented X 3 - Psych Psych: Normal mood, Normal affect Results - Vitals Vitals: Vital Signs - 24 hr 12/17/19 13:03 Temperature 37.1 C Heart Rate 100 Respiratory 18 Rate Blood Pressure 130/78 O2 Saturation 98 Oxygen O2 Source Room air - Labs Labs: Laboratory Tests 12/17/19 13:08 Group A Strep Rapid POSITIVE H PD MEDICAL DECISION MAKING - ED course Complexity details: reviewed results, re-evaluated patient, considered differential, d/w patient, d/w family ED course: Patient with strep pharyngitis. Given dexamethasone here. Will place on penicillin for home. No evidence of peritonsillar or retropharyngeal abscess. No trismus. Normal phonation. Patient counseled regarding signs and symptoms for which I believe and urgent re-evaluation would be necessary. Patient with good understanding of and agreement to plan and is comfortable going home at this time This document was made in part using voice recognition software. While efforts are made to proofread this document, sound alike and grammatical errors may occur. Departure - Departure Disposition: 01 Home, Self Care Clinical Impression: Strep pharyngitis Condition: Good Instructions: ED Strep Pharyngitis Conf Follow-Up: ZIGGY ZAMUDIO ARNP [Primary Care Provider] - As Needed Prescriptions: Penicillin V Potassium 500 mg PO Q6HR #40 tablet Ibuprofen [Motrin] 800 mg PO Q8H PRN #30 tablet PRN Reason: PAIN &/OR FEVER Comments: Take all antibiotics until gone. Return if you worsen. Follow-up with your doctor as needed for further care. Drink plenty of fluids
== END 2019-12-17 14:41 | disposition home or self-care (01) ==
LOC: ED 12:57
DX: J02.0 Streptococcal pharyngitis (principal); B95.0 Streptococcus, group A, as the cause of diseases classified elsewhere
CPT/HCPCS: 87430; 99283; 99284; A9270

== ENCOUNTER 2020-03-20 14:02 | Outpatient (CLI) | payer MEDICAID | END 2020-03-20 14:03 | disposition home or self-care (01) | LOC: EMS 14:02 | PROVIDERS: ATTEND Registered Nurse | DX: R10.9 Unspecified abdominal pain (principal) | CPT/HCPCS: A0425; A0429 ==

== ENCOUNTER 2020-03-20 14:23 | Emergency (ER) | payer MEDICAID ==
[2020-03-20] MEDS ORDERED: SODIUM CHLORIDE 0.9% 1,000 ML IV STA (14:42)
[2020-03-20] MEDS ORDERED: fentaNYL 100 MCG/2 ML VIAL IVP STA (14:42)
[2020-03-20] MEDS ORDERED: ONDANSETRON 4 MG/2 ML VIAL IVP STA (14:42)
[2020-03-20 14:46] LABS: BASOPHILS % (AUTO) 0.3 %; EOSINOPHILS % (AUTO) 0.3 %; HGB - HEMOGLOBIN 16.2 g/dL (14.0-18.0); LYMPHOCYTES # (AUTO) 1.3 10^3/uL (1.5-3.5); MEAN CORPUSCULAR HGB CONC 33.8 g/dL (32.0-36.0); MEAN CORPUSCULAR VOLUME 88.7 fL (80.0-94.0); MEAN PLATELET VOLUME 8.9 fL (7.4-11.4); MONOCYTES # (AUTO) 0.5 10^3/uL (0.0-1.0); MONOCYTES % (AUTO) 4.5 %; NEUTROPHILS % (AUTO) 83.6 %; PLT - PLATELET COUNT 329 10^3/uL (130-450); RED CELL DISTRIBUTION WIDTH 12.2 % (12.0-15.0)
[2020-03-20 14:58] LABS: ALBUMIN 4.5 g/dL (3.2-5.5); ALBUMIN/GLOBULIN RATIO 1.1 (1.0-2.2); BILIRUBIN,TOTAL 0.7 mg/dL (0.2-1.0); CALCIUM 9.3 mg/dL (8.5-10.3); CREATININE 1.1 mg/dL (0.6-1.2); TOTAL PROTEIN 8.6 g/dL (6.7-8.2)
--- NOTE | 2020-03-20 14:59 | ED Physician Documentation ---
History of Present Illness - Stated complaint Stated Complaint: RLQ PX - Chief complaint Chief Complaint: Abd Pain - Additonal information Additional information: 24-year-old male presents emergency department for evaluation of 5 days right l ower quadrant abdominal pain. Some radiation to the flank. No fevers positive nausea but no vomiting. Denies dysuria urgency or frequency. He denies hematuria. He denies that the symptoms worsen or change with micturition. Patient denies any history of previous surgical interventions. He does have past medical history that includes bipolar disorder. He also has extensive acne vulgaris Review of Systems Constitutional: reports: Reviewed and negative Eyes: reports: Reviewed and negative Nose: reports: Reviewed and negative Throat: reports: Reviewed and negative Cardiac: reports: Reviewed and negative GI: reports: Abdominal Pain, Nausea. denies: Vomiting, Constipation, Diarrhea, Hematemesis, Bloody / black stool : denies: Dysuria, Frequency, Hesitancy Skin: reports: Other (Extensive acne vulgaris on face trunk and back.). denies: Rash, Lesions Musculoskeletal: denies: Neck pain, Back pain Neurologic: reports: Reviewed and negative Psychiatric: reports: Reviewed and negative PD PAST MEDICAL HISTORY - Past Medical History Cardiovascular: None Respiratory: Asthma Neuro: None Endocrine/Autoimmune: None GI: GERD, Other : None HEENT: None Psych: Depression, Anxiety Musculoskeletal: None Derm: Eczema - Past Surgical History Past Surgical History: Yes General: Colonoscopy - Present Medications Home Medications: Ambulatory Orders Medication Instructions Recorded Confirmed FLUoxetine [PROzac] 40 mg PO DAILY 06/23/18 09/13/18 Omeprazole 20 mg PO DAILY #30 capsule. 09/06/18 09/13/18 Promethazine [Phenergan] 25 mg PO Q6H PRN #10 tab 12/12/18 Doxycycline Monohydrate 100 mg PO BID #14 tablet 03/01/19 Hydrocodone/Acetaminophen [[place] 1 each PO Q6H PRN #15 tablet 03/01/19 5-325 Tablet] Valacyclovir HCl [Valacyclovir] 1,000 mg PO TID #15 tablet 03/01/19 dexAMETHasone [Decadron] 4 mg PO DAILY #5 tablet 03/01/19 Ibuprofen [Motrin] 800 mg PO Q8H PRN #30 tablet 12/17/19 Penicillin V Potassium 500 mg PO Q6HR #40 tablet 12/17/19 Ibuprofen [Motrin] 600 mg PO Q6H PRN #30 tab 03/20/20 - Allergies Allergies/Adverse Reactions: Allergies Allergy/AdvReac Type Severity Reaction Status Date / Time No Known Drug Allergies Allergy Verified 03/20/20 14:31 - Social History Does the pt smoke?: No Smoking Status: Never smoker Does the pt drink ETOH?: Yes Does the pt have substance abuse?: Yes - Immunizations Immunizations are current?: Yes - POLST Patient has POLST: No PD ED PE EXPANDED - General General: Alert, No acute distress - Cardiac Cardiac: Tachy, Radial strong equal, Pedal strong equal, Cap refill < 2 sec. No: Murmur Present - Respiratory Respiratory: Clear to ausultation nay. No: Distress, Labored - Abdomen Abdomen: Normal Bowel sounds, Tender to palpation, Rebound, Guarding, RLQ (Right lower quadrant abdominal tenderness with guarding and rebound. Mild percussion tenderness elicited. No CVA tenderness elicited). No: Distended - Back Back: Normal exam, Normal ROM. No: Vertebral tenderness, Soft tissue tenderness - Derm Derm: Normal color, Warm and dry, Other (Extensive acne vulgaris on the face trunk and back) - Extremities Extremities: Normal. No: Deformity, Tenderness - Neuro Neuro: Alert and Oriented X 3. No: Confused, Disoriented - GCS Eye Opening: Spontaneous Motor: Obeys Commands Verbal: Oriented Total: 15 Results - Vitals Vitals: Vital Signs - 24 hr 03/20/20 03/20/20 03/20/20 14:28 14:32 16:30 Temperature 37.7 C 36.8 C Heart Rate 105 H 105 H 106 H Respiratory 16 15 18 Rate Blood Pressure 146/95 H 142/90 H 140/60 H O2 Saturation 100 99 98 Oxygen O2 Source Room air - Labs Labs: Laboratory Tests 03/20/20 03/20/20 03/20/20 14:38 14:38 15:02 WBC 12.0 H RBC 5.40 Hgb 16.2 Hct 47.9 MCV 88.7 MCH 30.0 MCHC 33.8 RDW 12.2 Plt Count 329 MPV 8.9 Neut # (Auto) 10.0 H Lymph # (Auto) 1.3 L [place] # (Auto) 0.5 Eos # (Auto) 0.0 Baso # (Auto) 0.0 Absolute Nucleated RBC 0.00 Nucleated RBC % 0.0 Sodium 135 Potassium 4.2 Chloride 98 L Carbon Dioxide 27 Anion Gap 10.0 BUN 19 Creatinine 1.1 Estimated GFR (MDRD) 81 L Glucose 92 Calcium 9.3 Total Bilirubin 0.7 AST 24 ALT 41 Alkaline Phosphatase 85 Total Protein 8.6 H Albumin 4.5 Globulin 4.1 Albumin/Globulin Ratio 1.1 Lipase 21 L Urine Color YELLOW Urine Clarity CLEAR Urine pH 6.5 Ur Specific [place] 1.025 Urine Protein NEGATIVE Urine Glucose (UA) NEGATIVE Urine Ketones NEGATIVE Urine Occult Blood NEGATIVE Urine Nitrite NEGATIVE Urine Bilirubin NEGATIVE Urine Urobilinogen 0.2 (NORMAL) Ur Leukocyte Esterase NEGATIVE Ur Microscopic Review NOT INDICATED Urine Culture Comments NOT INDICATED - Rads (name of study) CT abd Radiology: Final report received (No acute findings. Normal appendix.) PD MEDICAL DECISION MAKING - ED course Complexity details: reviewed results, re-evaluated patient, considered differential, d/w patient ED course: 24-year-old male presents the emergency department for about 5 days of right flank and right lower quadrant abdominal pain. No fever some nausea no vomiting no diarrhea. Screening labs reveal a mild leukocytosis of 12,000. He is normotensive. His urine shows no signs of infection. Given the location of the pain we did do a CT of the abdomen to rule out appendicitis. No acute focal findings are seen on CT of the abdomen. Patient had received 50 mcs of fentanyl here in the emergency department with moderate relief of the pain. At this time the etiology for his lower abdominal pain is unclear. I do recommend that he take ibuprofen or Tylenol at home for discomfort. Return to the emergency department for fevers worsening pain or syncopal episodes Departure - Departure Disposition: 01 Home, Self Care Clinical Impression: RLQ abdominal pain Condition: Stable Record reviewed to determine appropriate education?: Yes Instructions: ED Abdominal Pain Unkn Cause Follow-Up: [facility] [Provider Group] Prescriptions: Ibuprofen [Motrin] 600 mg PO Q6H PRN #30 tab PRN Reason: Pain Comments: Herminio you were seen in the emergency department for right lower abdominal pain. Your screening labs including your urine do not show any worrisome abnormalities. We did do a CT of the abdomen and reassuringly your appendix liver and intestines all appear normal. The cause of your pain is not clear at this time. I recommend that you continue all your previously prescribed medications. I have prescribed ibuprofen to help with abdominal discomfort. Please schedule a follow-up appointment at [facility]. It is important that you have a primary care provider to help manage your health in the long-term. If at any point you feel that the pain is worsening, you have fevers, uncontrolled vomiting black or bloody stools or fainting episodes please return immediately to the emergency department
[2020-03-20] MEDS ORDERED: IOVERSOL 320 100 ML VIAL IVP ONE ×2 (15:06→16:57)
[2020-03-20 15:13] LABS: BILIRUBIN,URINE NEGATIVE (NEGATIVE); GLUCOSE, URINE (UA) NEGATIVE (NEGATIVE); KETONES,URINE (UA) NEGATIVE (NEGATIVE); LEUKOCYTE ESTERASE, URINE NEGATIVE (NEGATIVE); NITRITE,URINE NEGATIVE (NEGATIVE); OCCULT BLOOD,URINE NEGATIVE (NEGATIVE); PH,URINE 6.5 PH (5.0-7.5); PROTEIN,URINE NEGATIVE (NEGATIVE); UROBILINOGEN,URINE 0.2 (NORMAL) E.U./dL (NORMAL)
[2020-03-20 15:15] LABS: CLARITY,URINE CLEAR (CLEAR)
[2020-03-20] MEDS ORDERED: OCTREOTIDE 500 MCG in SODIUM CHLORIDE 0.9% 100ML 95 ML IV STA (16:03)
--- NOTE | 2020-03-20 16:59 | CT Report ---
PROCEDURE: Abdomen/Pelvis W INDICATIONS: Right flank/RLQ pain CONTRAST: IV CONTRAST: Optiray 320 ml: 100 PO CONTRAST: *NO PO CONTRAST TECHNIQUE: After the administration of IV contrast, 5 mm thick sections acquired from the diaphragms to the symp hysis. 5 mm thick coronal and sagittal reformats were acquired. For radiation dose reduction, the f ollowing was used: automated exposure control, adjustment of mA and/or kV according to patient size. COMPARISON: None. FINDINGS: Image quality: Excellent. ABDOMEN: Lung bases: Lung bases are clear. Heart size is normal. Solid organs: Liver and spleen are normal in size and enhancement. Gallbladder Biliary system is non dilated. Pancreas enhances normally. No adrenal nodules. Kidneys demonstrate normal size an d enhancement, without hydronephrosis. Peritoneum and bowel: Small hiatal hernia. Bowel loops demonstrate normal wall thickness and caliber . Normal appendix. No free fluid or air. Nodes and vessels: No retroperitoneal or mesenteric adenopathy by size criteria. Aorta and inferior vena cava are normal in size. Miscellaneous: No ventral hernias. PELVIS: Genitourinary: Bladder wall thickness is normal. Miscellaneous: No inguinal hernias or adenopathy. Bones: No suspicious bony lesions. No vertebral body compression fractures. L5-S1 pars interarticu kyara defects bilaterally. IMPRESSION: 1. No acute process. 2. Normal appendix. 3. Bilateral L5-S1 pars intraarticular osteophytes. Reviewed by: Lefty Blackburn MD on 03/20/2020 4:58 PM PST Approved by: Lefty Blackburn MD on 03/20/2020 4:58 PM PST Station ID: [id number]
[2020-03-20 18:12] VITALS: BP 138/90
== END 2020-03-20 17:59 | disposition home or self-care (01) ==
LOC: ED 14:23
DX: R10.31 Right lower quadrant pain (principal)
CPT/HCPCS: 36415; 74177; 80053; 81003; 83690; 85025; 96361; 96374; 96375; 99284; Q9967; 81001; 87086

== ENCOUNTER 2020-10-17 13:31 | Outpatient (CLI) | payer MEDICAID ==
--- NOTE | 2020-10-17 15:57 | XRAY Report ---
PROCEDURE: Chest 2 View X-Ray INDICATIONS: CP AND ABD PAIN X 1 YR / WORSE THIS WEEK TECHNIQUE: 2 view(s) of the chest. COMPARISON: None. FINDINGS: Surgical changes and devices: None. Lungs and pleura: No pleural effusions or pneumothorax. Lungs are clear. Mediastinum: Mediastinal contours are normal. Heart size is normal. Bones and chest wall: No suspicious bony abnormalities. Soft tissues appear unremarkable. IMPRESSION: Normal chest. Reviewed by: Aliyah Burgos MD on 10/17/2020 3:56 PM PDT Approved by: Aliyah Burgos MD on 10/17/2020 3:56 PM PDT Station ID: [id number]
--- NOTE | 2020-10-17 16:33 | XRAY Report ---
PROCEDURE: Abdomen 2 View X-Ray INDICATIONS: CP AND ABD PAIN X 1 YR / WORSE THIS WEEK TECHNIQUE: 1 view of the abdomen were acquired. COMPARISON: CT of abdomen and pelvis dated 03/20/2020 FINDINGS: Surgical changes and devices: None. Bowel: No pneumoperitoneum. The bowel gas pattern is normal. Soft tissues: No masses; visualized solid organ contours appear normal in size. No suspicious abdom inal calcifications. Bones: No suspicious bony abnormalities. IMPRESSION: No evidence of bowel obstruction. No abnormal renal calcifications. No gross free air. Reviewed by: Jose Daniel Singleton MD on 10/17/2020 4:32 PM PDT Approved by: Jose Daniel Singleton MD on 10/17/2020 4:32 PM PDT Station ID: [id number]
[2020-10-17 18:14] LABS: ALBUMIN 4.2 g/dL (3.2-5.5); ALBUMIN/GLOBULIN RATIO 1.2 (1.0-2.2); BILIRUBIN,TOTAL 0.8 mg/dL (0.2-1.0); CALCIUM 9.1 mg/dL (8.5-10.3); CREATININE 0.9 mg/dL (0.6-1.2); POTASSIUM 4.1 mmol/L (3.5-5.0); TOTAL PROTEIN 7.8 g/dL (6.7-8.2)
[2020-10-17 18:17] LABS: BASOPHILS % (AUTO) 0.4 %; EOSINOPHILS # (AUTO) 0.1 10^3/uL (0.0-0.7); EOSINOPHILS % (AUTO) 1.2 %; HCT - HEMATOCRIT 46.2 % (42.0-52.0); HGB - HEMOGLOBIN 15.5 g/dL (14.0-18.0); LYMPHOCYTES # (AUTO) 1.4 10^3/uL (1.5-3.5); MEAN CORPUSCULAR HEMOGLOBIN 29.5 pg (27.0-31.0); MEAN CORPUSCULAR HGB CONC 33.5 g/dL (32.0-36.0); MEAN CORPUSCULAR VOLUME 87.8 fL (80.0-94.0); MEAN PLATELET VOLUME 9.6 fL (7.4-11.4); MONOCYTES # (AUTO) 0.5 10^3/uL (0.0-1.0); MONOCYTES % (AUTO) 5.5 %; NEUTROPHILS # (AUTO) 7.6 10^3/uL (1.5-6.6); NEUTROPHILS % (AUTO) 78.2 %; PLT - PLATELET COUNT 327 10^3/uL (130-450); RED BLOOD COUNT 5.26 10^6/uL (4.70-6.10); RED CELL DISTRIBUTION WIDTH 13.1 % (12.0-15.0); WHITE BLOOD COUNT 9.7 x10^3/uL (4.8-10.8)
== END 2020-10-17 23:59 | disposition home or self-care (01) ==
LOC: DI.N 13:31
PROVIDERS: ATTEND Physician Assistant Medical
DX: R07.9 Chest pain, unspecified (principal); R10.9 Unspecified abdominal pain
CPT/HCPCS: 36415; 80053; 83690; 85025

== ENCOUNTER 2021-02-18 16:52 | Emergency (ER) | payer MEDICAID ==
[2021-02-18 17:10] VITALS: BP 136/95
--- NOTE | 2021-02-18 18:23 | ED Physician Documentation ---
History of Present Illness - Stated complaint Stated Complaint: BODYACHES,CHILLS,HOT FLASHES - Chief complaint Chief Complaint: Heent - Additonal information Additional information: 25-year-old male presents emergency department for evaluation of 5 to 7 days cough cold congestion. No loss of taste or smell. No fevers. His roommate tested positive for COVID-19. Patient is a daily tobacco user. Remote history of asthma. No recent travel. He feels well but wants to either rule in or rule out COVID-19. Review of Systems Constitutional: denies: Fever, Chills Eyes: reports: Reviewed and negative Ears: reports: Reviewed and negative Nose: reports: Reviewed and negative Throat: reports: Reviewed and negative Cardiac: denies: Chest pain / pressure, Palpitations Respiratory: reports: Cough. denies: Dyspnea GI: reports: Reviewed and negative : reports: Reviewed and negative PD PAST MEDICAL HISTORY - Past Medical History Cardiovascular: None Respiratory: Asthma Neuro: None Endocrine/Autoimmune: None GI: GERD, Other : None HEENT: None Psych: Depression, Anxiety Musculoskeletal: None Derm: Eczema - Past Surgical History Past Surgical History: Yes General: Colonoscopy - Present Medications Home Medications: Ambulatory Orders Medication Instructions Recorded Confirmed FLUoxetine [PROzac] 40 mg PO DAILY 06/23/18 09/13/18 Omeprazole 20 mg PO DAILY #30 capsule. 09/06/18 09/13/18 Promethazine [Phenergan] 25 mg PO Q6H PRN #10 tab 12/12/18 Doxycycline Monohydrate 100 mg PO BID #14 tablet 03/01/19 Hydrocodone/Acetaminophen [[place] 1 each PO Q6H PRN #15 tablet 03/01/19 5-325 Tablet] Valacyclovir HCl [Valacyclovir] 1,000 mg PO TID #15 tablet 03/01/19 dexAMETHasone [Decadron] 4 mg PO DAILY #5 tablet 03/01/19 Ibuprofen [Motrin] 800 mg PO Q8H PRN #30 tablet 12/17/19 Penicillin V Potassium 500 mg PO Q6HR #40 tablet 12/17/19 Ibuprofen [Motrin] 600 mg PO Q6H PRN #30 tab 03/20/20 - Allergies Allergies/Adverse Reactions: Allergies Allergy/AdvReac Type Severity Reaction Status Date / Time No Known Drug Allergies Allergy Verified 02/18/21 17:10 - Social History Does the pt smoke?: No Smoking Status: Never smoker Does the pt drink ETOH?: Yes Does the pt have substance abuse?: Yes - Immunizations Immunizations are current?: Yes - POLST Patient has POLST: No PD ED PE NORMAL - General General: Alert and oriented X 3, No acute distress - HEENT HEENT: PERRL - Neck Neck: Supple, no meningeal sign - Cardiac Cardiac: RRR, No murmur - Respiratory Respiratory: No respiratory distress, Clear bilaterally - Abdomen Abdomen: Normal bowel sounds, Soft - Back Back: No CVA TTP, No spinal TTP - Derm Derm: Normal color, Warm and dry - Extremities Extremities: No deformity - Neuro Neuro: Alert and oriented X 3 Eye Opening: Spontaneous Motor: Obeys Commands Verbal: Oriented GCS Score: 15 - Psych Psych: Normal mood Results - Vitals Vitals: Vital Signs - 24 hr 02/18/21 17:08 Temperature 36.7 C Heart Rate 101 H Respiratory 16 Rate Blood Pressure 136/95 H O2 Saturation 96 Oxygen O2 Source Room air PD MEDICAL DECISION MAKING - ED course Complexity details: re-evaluated patient, considered differential, d/w patient ED course: 25-year-old male who has unremarkable vitals for age presents emergency department for evaluation of cough cold and congestion that began about 1 week ago. His roommate has tested positive for COVID-19. He is here today to either rule in or rule out the infection itself. Unremarkable cardiopulmonary auscultation. No hypoxia on room air. COVID test is pending. He is advised to maintain quarantine until test results are known. Otherwise he is to maintain quarantine for 10 to 14 days from onset of symptoms. Emergent return precautions discussed. Departure - Departure Disposition: 01 Home, Self Care Clinical Impression: Encounter for screening for COVID-19 URI (upper respiratory infection) Qualifiers: URI type: unspecified viral URI Qualified Code(s): J06.9 - Acute upper respiratory infection, unspecified Condition: Stable Record reviewed to determine appropriate education?: Yes Comments: You are seen today for cough cold and congestion that began last week. Your roommate has tested positive for COVID-19. We do have a test pending on you today but you should presume that you are positive until notified otherwise. It may take 2 to 3 days for your test to result. In general we recommend that you maintain quarantine for 10 to 14 days after symptoms began. If at any point you develop sudden severe shortness of air, fevers higher than 103, uncontrolled vomiting or diarrhea then please return immediately to the ER for 2nd evaluation.
== END 2021-02-18 18:25 | disposition home or self-care (01) ==
LOC: ED 16:52
DX: J06.9 Acute upper respiratory infection, unspecified (principal); Z20.822 Contact with and (suspected) exposure to COVID-19; Z72.0 Tobacco use
CPT/HCPCS: 99282; 99283